=== PATIENT | female | born 1965 | race American Indian/Alaskan Native ===

== ENCOUNTER 2021-01-10 21:55 | Inpatient (IN) | payer MEDICAID ==
[2021-01-10] MEDS ORDERED: SODIUM CHLORIDE 0.9% 500 ML 500 ML IV ONE (22:45)
[2021-01-10] MEDS ORDERED: ONDANSETRON 4 MG/2 ML INJ IV ONE (22:45)
[2021-01-10] MEDS ORDERED: HYDROmorphone 1 MG/1 ML INJ IV ONE (22:45)
[2021-01-10] MEDS ORDERED: SODIUM CHLORIDE 0.9% 1000 ML 1,000 ML IV ONE (22:45)
--- NOTE | 2021-01-10 22:52 | Emergency Department Report ---
ED Abdominal Pain HPI - General Chief Complaint: Urogenital-Female Stated Complaint: LOWER BODY PAIN PUI?: No Time Seen by Provider: 01/10/21 22:25 Source: EMS Mode of arrival: Stretcher Limitations: No Limitations - History of Present Illness Initial Comments: Patient is a 55-year-old female that presents emergency room with complaints of lower abdominal pain. Patient states also having vaginal pain. Patient states that her abdominal pain started 2 days ago. Patient is a vaginal pain started 2 weeks ago. Patient states she has a history of cervical cancer that has been managed to the bone and brain. Patient states she is on home O2 for her cancer. Patient states she is not sure if he has mets to her lungs. Patient states that she is on 4 L of oxygen at home. Patient's current oxygen saturation is 91%. Patient states she is normally 98% with 4 L of oxygen at home. Patient states that her abdominal pain and vaginal pain is better with rest and worse with movement and palpation. Patient denies fever and chills. Patient denies dysuria. Patient denies diarrhea. Patient denies chest pain. Patient denies shortness of breath. Patient states she is feeling normal as far as her respiratory status. Patient also complains of lower back pain. Patient states her lower back pain is been going on for 3 weeks. Patient states her lower back pain is worsening. Patient dates her lower back pain is a 10 out of 10. Patient states her abdominal pain is 10 out of 10. Patient dates her vaginal pain is a 10 out of 10. Patient denies recent travel. Patient denies recent international travel. Patient denies exposure to the novel coronavirus. Patient denies sick contacts. Patient denies fever and chills. Patient denies cough. Patient denies diarrhea. Patient denies coming in contact with anybody with symptoms of the novel coronavirus. MD Complaint: abdominal pain -: Sudden - Related Data Home Medications Medication Instructions Recorded Confirmed Last Taken Butalb/Acetamin/Caff 50-325-40 1 tab PO Q8HR PRN 01/11/21 01/11/21 01/10/21 19:00 [Fioricet 50-325-40] LORazepam [Lorazepam] 1 tab PO PRN 01/11/21 01/11/21 01/10/21 19:00 dexAMETHasone [Dexamethasone] 2 mg PO BID 01/11/21 01/11/21 01/10/21 15:00 Previous Rx's Medication Instructions Recorded Last Taken Type Cyclobenzaprine [Flexeril 10mg] 10 mg PO BID PRN #20 tablet 08/09/14 01/10/21 19:00 Rx Ibuprofen [Motrin 800 MG tab] 800 mg PO BID PRN #30 tablet 08/09/14 Unknown Rx Allergies Allergy/AdvReac Type Severity Reaction Status Date / Time No Known Allergies Allergy Verified 08/09/14 15:15 ED Review of Systems ROS: Stated complaint: LOWER BODY PAIN Other details as noted in HPI Constitutional: denies: chills, fever Eyes: denies: eye pain, eye discharge, vision change ENT: denies: ear pain, throat pain Respiratory: denies: cough, shortness of breath, wheezing Cardiovascular: denies: chest pain, palpitations Endocrine: no symptoms reported Gastrointestinal: as per HPI, abdominal pain. denies: nausea, diarrhea Genitourinary: denies: urgency, dysuria, discharge Musculoskeletal: as per HPI, back pain. denies: joint swelling, arthralgia Skin: denies: rash, lesions Neurological: denies: headache, weakness, paresthesias Psychiatric: denies: anxiety, depression Hematological/Lymphatic: denies: easy bleeding, easy bruising ED Past Medical Hx - Past Medical History Previous Medical History?: Yes Hx Diabetes: Yes Hx of Cancer: Yes (bone ca brain ca and cervical ca) Additional medical history: home 02 - Surgical History Past Surgical History?: No - Family History Family history: no significant - Social History Smoking Status: Never Smoker Substance Use Type: None - Medications Home Medications: Home Medications Medication Instructions Recorded Confirmed Last Taken Type Cyclobenzaprine [Flexeril 10mg] 10 mg PO BID PRN #20 tablet 08/09/14 01/11/21 01/10/21 19:00 Rx Ibuprofen [Motrin 800 MG tab] 800 mg PO BID PRN #30 tablet 08/09/14 01/11/21 Unknown Rx Butalb/Acetamin/Caff 50-325-40 1 tab PO Q8HR PRN 01/11/21 01/11/21 01/10/21 19:00 History [Fioricet 50-325-40] LORazepam [Lorazepam] 1 tab PO PRN 01/11/21 01/11/21 01/10/21 19:00 History dexAMETHasone [Dexamethasone] 2 mg PO BID 01/11/21 01/11/21 01/10/21 15:00 History ED Physical Exam - General Limitations: No Limitations General appearance: alert, in no apparent distress - Head Head exam: Present: atraumatic, normocephalic - Eye Eye exam: Present: normal appearance - ENT ENT exam: Present: mucous membranes moist - Neck Neck exam: Present: normal inspection - Respiratory Respiratory exam: Present: normal lung sounds bilaterally. Absent: respiratory distress - Cardiovascular Cardiovascular Exam: Present: regular rate, normal rhythm. Absent: systolic murmur, diastolic murmur, rubs, gallop - GI/Abdominal GI/Abdominal exam: Present: soft, tenderness (Lower abdominal tenderness.), normal bowel sounds - Extremities Exam Extremities exam: Present: normal inspection - Back Exam Back exam: Present: normal inspection - Neurological Exam Neurological exam: Present: alert, oriented X3 - Psychiatric Psychiatric exam: Present: normal affect, normal mood - Skin Skin exam: Present: warm, dry, intact, normal color. Absent: rash ED Course Vital Signs 01/10/21 01/10/21 01/10/21 21:56 22:10 22:19 Temperature 97.8 F 97.8 F Pulse Rate 155 H 155 H 156 H Respiratory 22 18 32 H Rate Blood Pressure 104/63 104/63 Blood Pressure 104/63 [Left] O2 Sat by Pulse 93 91 89 Oximetry 01/10/21 01/10/21 01/10/21 22:21 22:23 22:25 Temperature Pulse Rate 158 H 160 H 155 H Respiratory 33 H 27 H 33 H Rate Blood Pressure 104/63 104/63 104/63 Blood Pressure [Left] O2 Sat by Pulse 91 90 91 Oximetry 01/10/21 01/10/21 01/10/21 22:27 22:29 22:31 Temperature Pulse Rate 154 H 152 H 148 H Respiratory 29 H 19 20 Rate Blood Pressure 109/63 109/63 109/63 Blood Pressure [Left] O2 Sat by Pulse 86 94 97 Oximetry 01/10/21 01/10/21 01/10/21 22:33 22:35 22:37 Temperature Pulse Rate 146 H 142 H 141 H Respiratory 28 H 29 H 31 H Rate Blood Pressure 109/63 109/63 109/63 Blood Pressure [Left] O2 Sat by Pulse 97 97 98 Oximetry 01/10/21 01/10/21 01/10/21 22:39 22:41 22:43 Temperature Pulse Rate 139 H 141 H 141 H Respiratory 27 H 29 H 21 Rate Blood Pressure 109/63 109/63 109/63 Blood Pressure [Left] O2 Sat by Pulse 98 96 98 Oximetry 01/10/21 01/10/21 01/10/21 22:45 22:47 22:49 Temperature Pulse Rate 139 H 139 H 135 H Respiratory 20 18 30 H Rate Blood Pressure 109/63 109/63 109/63 Blood Pressure [Left] O2 Sat by Pulse 97 99 99 Oximetry 01/10/21 01/10/21 01/10/21 22:51 22:53 22:55 Temperature Pulse Rate 137 H 140 H 142 H Respiratory 30 H 23 24 Rate Blood Pressure 109/63 109/63 109/63 Blood Pressure [Left] O2 Sat by Pulse 99 97 98 Oximetry 01/10/21 01/10/21 01/10/21 22:57 22:59 23:01 Temperature Pulse Rate 140 H 140 H 142 H Respiratory 21 17 16 Rate Blood Pressure 118/67 118/67 118/67 Blood Pressure [Left] O2 Sat by Pulse 96 96 96 Oximetry 01/10/21 01/10/21 01/10/21 23:03 23:05 23:07 Temperature Pulse Rate 142 H 139 H 140 H Respiratory 18 14 21 Rate Blood Pressure 118/67 118/67 118/67 Blood Pressure [Left] O2 Sat by Pulse 96 95 94 Oximetry 01/10/21 01/10/21 01/10/21 23:09 23:11 23:13 Temperature Pulse Rate 142 H 138 H 138 H Respiratory 15 10 L 18 Rate Blood Pressure 118/67 118/67 118/67 Blood Pressure [Left] O2 Sat by Pulse 94 94 94 Oximetry 01/10/21 01/10/21 01/10/21 23:15 23:17 23:19 Temperature Pulse Rate 137 H 134 H 133 H Respiratory 8 L 20 58 H Rate Blood Pressure 118/67 118/67 118/67 Blood Pressure [Left] O2 Sat by Pulse 94 94 96 Oximetry 01/10/21 01/10/21 01/10/21 23:21 23:23 23:25 Temperature Pulse Rate 128 H 124 H 129 H Respiratory 17 21 16 Rate Blood Pressure 118/67 118/67 118/67 Blood Pressure [Left] O2 Sat by Pulse 97 95 95 Oximetry 01/10/21 01/10/21 01/10/21 23:27 23:29 23:31 Temperature Pulse Rate 126 H 121 H 123 H Respiratory 26 H 21 21 Rate Blood Pressure 117/77 117/77 117/77 Blood Pressure [Left] O2 Sat by Pulse 96 95 95 Oximetry 01/10/21 01/10/21 01/10/21 23:33 23:35 23:37 Temperature Pulse Rate 127 H 122 H 125 H Respiratory 17 20 19 Rate Blood Pressure 117/77 117/77 117/77 Blood Pressure [Left] O2 Sat by Pulse 94 95 95 Oximetry 01/10/21 01/10/21 01/10/21 23:39 23:41 23:43 Temperature Pulse Rate 122 H 126 H 132 H Respiratory 20 20 18 Rate Blood Pressure 117/77 117/77 117/77 Blood Pressure [Left] O2 Sat by Pulse 95 95 95 Oximetry 01/10/21 01/10/21 01/10/21 23:45 23:47 23:49 Temperature Pulse Rate 120 H 120 H 124 H Respiratory 19 19 20 Rate Blood Pressure 117/77 117/77 117/77 Blood Pressure [Left] O2 Sat by Pulse 96 95 95 Oximetry 01/10/21 01/10/21 01/10/21 23:51 23:53 23:55 Temperature Pulse Rate 124 H 118 H 117 H Respiratory 16 19 20 Rate Blood Pressure 117/77 117/77 117/77 Blood Pressure [Left] O2 Sat by Pulse 96 96 97 Oximetry 01/10/21 01/11/21 01/11/21 23:57 01:21 01:23 Temperature Pulse Rate 116 H 120 H 117 H Respiratory 21 23 15 Rate Blood Pressure 116/75 132/82 132/82 Blood Pressure [Left] O2 Sat by Pulse 96 95 95 Oximetry 01/11/21 01/11/21 01/11/21 01:25 01:27 01:29 Temperature Pulse Rate 118 H 113 H 115 H Respiratory 27 H 21 25 H Rate Blood Pressure 132/82 132/82 132/82 Blood Pressure [Left] O2 Sat by Pulse 93 93 94 Oximetry 01/11/21 01/11/21 01/11/21 01:31 01:33 01:35 Temperature Pulse Rate 111 H 110 H 112 H Respiratory 19 20 20 Rate Blood Pressure 132/82 132/82 132/82 Blood Pressure [Left] O2 Sat by Pulse 94 94 94 Oximetry 01/11/21 01/11/21 01/11/21 01:37 01:38 01:40 Temperature Pulse Rate 109 H 112 H 110 H Respiratory 19 20 19 Rate Blood Pressure 132/82 132/82 132/82 Blood Pressure [Left] O2 Sat by Pulse 94 94 94 Oximetry 01/11/21 01/11/21 01/11/21 02:13 02:15 02:17 Temperature Pulse Rate 113 H 102 H 103 H Respiratory 23 19 19 Rate Blood Pressure 140/92 140/92 Blood Pressure [Left] O2 Sat by Pulse 92 94 93 Oximetry 01/11/21 01/11/21 01/11/21 02:19 02:21 02:23 Temperature Pulse Rate 100 H 100 H 98 H Respiratory 19 18 20 Rate Blood Pressure 140/92 140/92 140/92 Blood Pressure [Left] O2 Sat by Pulse 94 95 95 Oximetry 01/11/21 01/11/21 01/11/21 02:25 02:27 02:29 Temperature Pulse Rate 96 H 101 H 98 H Respiratory 19 20 19 Rate Blood Pressure 140/92 113/73 113/73 Blood Pressure [Left] O2 Sat by Pulse 95 95 Oximetry 01/11/21 01/11/21 01/11/21 02:31 02:33 02:35 Temperature Pulse Rate 96 H 91 H 92 H Respiratory 18 20 17 Rate Blood Pressure 113/73 113/73 113/73 Blood Pressure [Left] O2 Sat by Pulse 96 97 97 Oximetry 01/11/21 01/11/21 01/11/21 02:37 02:39 02:41 Temperature Pulse Rate 94 H 95 H 93 H Respiratory 18 18 18 Rate Blood Pressure 113/73 113/73 113/73 Blood Pressure [Left] O2 Sat by Pulse 97 97 97 Oximetry 01/11/21 01/11/21 01/11/21 02:43 02:45 02:47 Temperature Pulse Rate 93 H 94 H 95 H Respiratory 18 19 19 Rate Blood Pressure 113/73 113/73 113/73 Blood Pressure [Left] O2 Sat by Pulse 97 97 97 Oximetry 01/11/21 01/11/21 01/11/21 02:49 02:51 02:53 Temperature Pulse Rate 94 H 118 H 110 H Respiratory 18 19 22 Rate Blood Pressure 113/73 113/73 113/73 Blood Pressure [Left] O2 Sat by Pulse 97 97 95 Oximetry 01/11/21 01/11/21 01/11/21 02:55 02:57 02:59 Temperature Pulse Rate 115 H 113 H 118 H Respiratory 18 20 18 Rate Blood Pressure 113/73 145/73 145/73 Blood Pressure [Left] O2 Sat by Pulse 95 91 95 Oximetry 01/11/21 01/11/21 01/11/21 03:01 03:03 03:05 Temperature Pulse Rate 105 H 99 H 99 H Respiratory 24 23 23 Rate Blood Pressure 145/73 145/73 145/73 Blood Pressure [Left] O2 Sat by Pulse 97 96 96 Oximetry 01/11/21 01/11/21 01/11/21 03:07 03:09 03:11 Temperature Pulse Rate 98 H 98 H 94 H Respiratory 21 21 21 Rate Blood Pressure 145/73 145/73 145/73 Blood Pressure [Left] O2 Sat by Pulse 97 97 98 Oximetry 01/11/21 01/11/21 01/11/21 03:13 03:15 03:17 Temperature Pulse Rate 94 H 104 H 106 H Respiratory 20 21 21 Rate Blood Pressure 145/73 145/73 145/73 Blood Pressure [Left] O2 Sat by Pulse 98 98 98 Oximetry 01/11/21 01/11/21 01/11/21 03:19 03:21 03:23 Temperature Pulse Rate 94 H 96 H 102 H Respiratory 19 20 19 Rate Blood Pressure 145/73 145/73 145/73 Blood Pressure [Left] O2 Sat by Pulse 99 99 99 Oximetry 01/11/21 01/11/21 01/11/21 03:25 03:27 03:29 Temperature Pulse Rate 95 H 96 H 93 H Respiratory 20 17 18 Rate Blood Pressure 145/73 107/58 107/58 Blood Pressure [Left] O2 Sat by Pulse 99 99 98 Oximetry 01/11/21 01/11/21 01/11/21 03:31 04:01 04:31 Temperature Pulse Rate 95 H 94 H 93 H Respiratory 18 19 19 Rate Blood Pressure 107/58 114/63 113/63 Blood Pressure [Left] O2 Sat by Pulse 99 100 99 Oximetry 01/11/21 01/11/21 05:25 05:26 Temperature Pulse Rate 111 H Respiratory 20 20 Rate Blood Pressure Blood Pressure [Left] O2 Sat by Pulse Oximetry - Reevaluation(s) Reevaluation #1: Patient is still tachycardic. Patient will be given IV fluids. Patient is on 6 L of oxygen. 01/10/21 22:30 Reevaluation #2: Patient states her pain is better. 01/11/21 00:11 Reevaluation #3: I discussed all results with patient. I discussed plan of care with patient. Patient agrees with plan of care and admission. Patient to be admitted to the hospitalist service. 01/11/21 03:11 - Consultations Consultation #1: Hospitalist consulted for admission. Hospitalist to admit patient. 01/11/21 03:11 Consultation #2: General surgery consulted. 01/11/21 03:11 ED Medical Decision Making - Lab Data Result diagrams: 01/11/21 12:45 01/11/21 12:45 - EKG Data -: EKG Interpreted by Me EKG shows normal: sinus rhythm, axis, intervals, QRS complexes, ST-T waves Rate: tachycardia - Radiology Data Radiology results: report reviewed, image reviewed interpreted by me: Chest x-ray: Positive pneumonia, no pneumothorax, no foreign body, no osseous findings, CHEST 1 VIEW INDICATION / CLINICAL INFORMATION: tachycardia. COMPARISON: None available. FINDINGS: SUPPORT DEVICES: None. HEART / MEDIASTINUM: No significant abnormality. LUNGS / PLEURA: There is marked diffuse interstitial pulmonary opacities throughout both lungs. There is more focal area of consolidation in the right mid and lower lung. Small right pleural effusion is present. No pneumothorax. ADDITIONAL FINDINGS: No significant additional findings. IMPRESSION: 1. Abnormal chest radiograph with diffuse bilateral interstitial pulmonary opacities, with right basilar consolidation and right pleural effusion. CTA CHEST WITH IV CONTRAST INDICATION / CLINICAL INFORMATION: Tachycardia, hypoxia. Patient has cervical cancer TECHNIQUE: Axial CT images were obtained through the chest after injection of 100 cc IV contrast. 3 plane MIP and/or 3D reconstructions were produced. All CT scans at this location are performed using CT dose reduction for ALARA by means of automated exposure control. COMPARISON: Chest radiograph 01/10/2021 FINDINGS: PULMONARY ARTERIES: No pulmonary emboli. THORACIC AORTA: No significant abnormality. HEART: No significant abnormality. CORONARY ARTERIES: No significant calcification. PLEURA: Small right pleural effusion. No pneumothorax. LYMPH NODES: There are several mild to moderately enlarged lymph nodes scatte red throughout the mediastinum and both pulmonary karla most likely metastatic adenopathy in this pa tient with known cervical carcinoma. LUNGS: There are numerous pulmonary nodules throughout both lungs of various sizes consistent with pulmonary metastases. 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 There is near complete consolidation of the right lower lobe and focal consolidation in the left lung base worrisome for bilateral pneumonia. ADDITIONAL FINDINGS: None. UPPER ABDOMEN: Please see separately dictated CT abdomen/pelvis report SKELETAL STRUCTURES: Mild spondylitic change noted throughout the spine. IMPRESSION: 1. No CT evidence for pulmonary embolism. 2. The lungs are grossly abnormal with findings suggesting pulmonary metastases, as well as a diffuse bilateral reticular nodular interstitial disease, worrisome for lymphangitic carcinomatosis. 3. There is complete consolidation of the right lower lobe with air bronchograms suggesting pneumonia. There is also lesser degree of airspace disease in the left lung base also worrisome for pneumonia. 4. Multiple enlarged lymph nodes are present in the mediastinum and both pulmonary karla most likely metastatic adenopathy. . CT abdomen pelvis w con, INDICATION / CLINICAL INFORMATION: Patient complains of abdominal pain. Patient has cervical carcinoma TECHNIQUE: Axial CT imaging of abdomen and pelvis was obtained with IV contrast. Coronal and sagittal reformatted imaging obtained and reviewed. All CT scans at this location are performed using CT dose reduction for ALARA by means of automated exposure control. COMPARISON: None available. FINDINGS: CT abdomen with contrast shows enlarged liver. Several ill defined masses of various sizes are seen throughout the liver parenchyma consistent with hepatic metastases. The largest measurable mass is in the medial segment of the left lobe measuring 4 cm. Spleen is of normal size. Pancreas and adrenal glands are grossly unremarkable. There are a few simple cysts within both kidneys. Additionally there is a complex round mass in the upper pole the left kidney measuring 4.5 cm. The gallbladder is abnormal. The gallbladder contains several gallstones. The gallbladder is markedly distended with a suggestion of gallbladder wall thickening. There is no biliary dilatation. Small amount of free fluid is seen throughout the abdomen. There are multiple enlarged lymph nodes scattered throughout the retroperitoneum. CT pelvis demonstrates enlarged heterogeneous appearing uterus. GI tract is grossly unremarkable. No evidence for bowel obstruction. There is omental nodularity noted. No evidence for osseous metastases. IMPRESSION: 1. This is a grossly abnormal CT scan. 2. Abnormal appearance of the gallbladder. Gallbladder is prominently distended and contains gallstones as well as gallbladder wall thickening. Findings are concerning for the presence of acute cholecystitis and clinical correlation is recommended. 3. Numerous hepatic metastases as well as extensive retroperitoneal metastatic adenopathy. 4. Findings suggestive of peritoneal carcinomatosis with small amount of ascites noted and omental nodularity/thickening. 5. Complex enhancing solid mass within the upper pole of the left kidney. This could represent a renal metastasis or a primary renal neoplasm. 6. Enlarged heterogeneous uterus. - Medical Decision Making Patient is a 55-year-old female that presents emergency room with vaginal pain, lower abdominal pain. Patient found to be tachycardic and hypoxic. Patient states she has hypoxia since she was diagnosed with cervical cancer. Patient states she does not have mets to her lungs. Patient states she has mets to the bone and brain. Patient had an EKG done which shows sinus tachycardia. Patient given Dilaudid for pain. Patient given fluids for tachycardia. Patient had a abdominal CT and a CTA of the chest to rule out a PE. Patient's abdominal CT shows acute cholecystitis and multiple masses. Patient CTA of the chest shows multiple metastatic lesions of the lungs but no PE. The CTA does show pneumonia. Patient admitted to the hospital service for further evaluation treatment. General surgery consulted. Critical care time documented due to the multiple reassessments, prolonged time at the bedside, interpretation of diagnostics and labs. - Differential Diagnosis PE, pneumonia, sepsis, abdominal pain, tachycardia, dehydration Critical Care Time: Yes Critical care time in (mins) excluding proc time.: 35 Critical care attestation.: If time is entered above; I have spent that time in minutes in the direct care of this critically ill patient, excluding procedure time. Critical Care Time: 35 minutes ED Disposition Clinical Impression: Acute cholecystitis, Tachycardia Sepsis Qualifiers: Sepsis type: sepsis due to unspecified organism Sepsis acute organ dysfunction status: unspecified Qualified Code(s): A41.9 - Sepsis, unspecified organism Pneumonia Qualifiers: Pneumonia type: due to unspecified organism Laterality: unspecified laterality Lung location: unspecified part of lung Qualified Code(s): J18.9 - Pneumonia, unspecified organism Cervical cancer Qualifiers: Malignant neoplasm of cervix location: unspecified location Qualified Code(s): C53.9 - Malignant neoplasm of cervix uteri, unspecified Respiratory failure Qualifiers: Chronicity: acute Respiratory failure complication: hypoxia Qualified Code(s): J96.01 - Acute respiratory failure with hypoxia Disposition: -09 OP ADMIT IP TO THIS HOSP Is pt being admited?: Yes Does the pt Need Aspirin: No Condition: Critical Time of Disposition: 03:12
--- NOTE | 2021-01-10 23:19 | XRay Report ---
CHEST 1 VIEW INDICATION / CLINICAL INFORMATION: tachycardia. COMPARISON: None available. FINDINGS: SUPPORT DEVICES: None. HEART / MEDIASTINUM: No significant abnormality. LUNGS / PLEURA: There is marked diffuse interstitial pulmonary opacities throughout both lungs. There is more focal area of consolidation in the right mid and lower lung. Small right pleural effusion is present. No pneumothorax. ADDITIONAL FINDINGS: No significant additional findings. IMPRESSION: 1. Abnormal chest radiograph with diffuse bilateral interstitial pulmonary opacities, with right basi lar consolidation and right pleural effusion. Signer Name: Jazmyn Chiu MD Signed: 01/10/2021 11:15 PM Workstation Name: [id number]
[2021-01-10 23:22] LABS: Hematocrit 27.7 % (30.3-42.9); Mean Corpuscular HGB Conc 33 % (30-34); Platelet Count 322 K/mm3 (140-440); Red Blood Count 4.03 M/mm3 (3.65-5.03)
[2021-01-10 23:23] LABS: Mean Corpuscular Volume 69 fl (79-97); Red Cell Distribution Width 23.7 % (13.2-15.2)
[2021-01-11] MEDS ORDERED: HYDROmorphone 1 MG/1 ML INJ IV ONE (00:01)
[2021-01-11 00:11] LABS: Alanine Aminotransferase 19 units/L (7-56); Albumin 2.3 g/dL (3.9-5); Blood Urea Nitrogen 10 mg/dL (7-17); Calcium 8.2 mg/dL (8.4-10.2); Hemolysis Index 0
[2021-01-11 00:16] LABS: BUN/Creatinine Ratio 25; Bilirubin,Direct < 0.2 mg/dL (0-0.2)
[2021-01-11] MEDS ORDERED: SODIUM CHLORIDE 0.9% 1000 ML 1,000 ML IV ONE (00:19)
[2021-01-11] MEDS ORDERED: CEFEPIME/NS 2 GM/100 ML 2 GM/100 ML BAG IV ONE (00:19)
[2021-01-11 01:15] LABS: Total Cells Counted 100
[2021-01-11 01:16] LABS: Anisocytosis 1+; Hypochromasia 1+
--- NOTE | 2021-01-11 02:49 | Cat Scan Report ---
CTA CHEST WITH IV CONTRAST INDICATION / CLINICAL INFORMATION: Tachycardia, hypoxia. Patient has cervical cancer TECHNIQUE: Axial CT images were obtained through the chest after injection of 100 cc IV contrast. 3 plane MIP an d/or 3D reconstructions were produced. All CT scans at this location are performed using CT dose redu ction for ALARA by means of automated exposure control. COMPARISON: Chest radiograph 01/10/2021 FINDINGS: PULMONARY ARTERIES: No pulmonary emboli. THORACIC AORTA: No significant abnormality. HEART: No significant abnormality. CORONARY ARTERIES: No significant calcification. PLEURA: Small right pleural effusion. No pneumothorax. LYMPH NODES: There are several mild to moderately enlarged lymph nodes scattered throughout the media stinum and both pulmonary karla most likely metastatic adenopathy in this patient with known cervical carcinoma. LUNGS: There are numerous pulmonary nodules throughout both lungs of various sizes consistent with pu lmonary metastases. 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 There is near complete consolidation of the right lower lobe and focal consolidation in the left lung base worrisome for prince ateral pneumonia. ADDITIONAL FINDINGS: None. UPPER ABDOMEN: Please see separately dictated CT abdomen/pelvis report SKELETAL STRUCTURES: Mild spondylitic change noted throughout the spine. IMPRESSION: 1. No CT evidence for pulmonary embolism. 2. The lungs are grossly abnormal with findings suggesting pulmonary metastases, as well as a diffuse bilateral reticular nodular interstitial disease, worrisome for lymphangitic carcinomatosis. 3. There is complete consolidation of the right lower lobe with air bronchograms suggesting pneumonia . There is also lesser degree of airspace disease in the left lung base also worrisome for pneumonia. 4. Multiple enlarged lymph nodes are present in the mediastinum and both pulmonary karla most likely m etastatic adenopathy. . CT abdomen pelvis w con, INDICATION / CLINICAL INFORMATION: Patient complains of abdominal pain. Patient has cervical carcinoma TECHNIQUE: Axial CT imaging of abdomen and pelvis was obtained with IV contrast. Coronal and sagittal reformatte d imaging obtained and reviewed. All CT scans at this location are performed using CT dose reduction for ALARA by means of automated exposure control. COMPARISON: None available. FINDINGS: CT abdomen with contrast shows enlarged liver. Several ill defined masses of various sizes are seen t hroughout the liver parenchyma consistent with hepatic metastases. The largest measurable mass is in the medial segment of the left lobe measuring 4 cm. Spleen is of normal size. Pancreas and adrenal gl ands are grossly unremarkable. There are a few simple cysts within both kidneys. Additionally there i s a complex round mass in the upper pole the left kidney measuring 4.5 cm. The gallbladder is abnormal. The gallbladder contains several gallstones. The gallbladder is markedly distended with a suggestion of gallbladder wall thickening. There is no biliary dilatation. Small amount of free fluid is seen throughout the abdomen. There are multiple enlarged lymph nodes sc attered throughout the retroperitoneum. CT pelvis demonstrates enlarged heterogeneous appearing uterus. GI tract is grossly unremarkable. No evidence for bowel obstruction. There is omental nodularity noted. No evidence for osseous metastases. IMPRESSION: 1. This is a grossly abnormal CT scan. 2. Abnormal appearance of the gallbladder. Gallbladder is prominently distended and contains gallston es as well as gallbladder wall thickening. Findings are concerning for the presence of acute cholecys titis and clinical correlation is recommended. 3. Numerous hepatic metastases as well as extensive retroperitoneal metastatic adenopathy. 4. Findings suggestive of peritoneal carcinomatosis with small amount of ascites noted and omental no dularity/thickening. 5. Complex enhancing solid mass within the upper pole of the left kidney. This could represent a aneta l metastasis or a primary renal neoplasm. 6. Enlarged heterogeneous uterus. Signer Name: Jazmyn Chiu MD Signed: 01/11/2021 2:44 AM Workstation Name: [id number]
[2021-01-11] MEDS ORDERED: MAGNESIUM HYDROXIDE (MOM) ORAL LIQD UDC PO PRN (03:39)
[2021-01-11] MEDS ORDERED: ONDANSETRON 4 MG/2 ML INJ IV PRN (03:39)
[2021-01-11] MEDS ORDERED: DEXTROSE 50% IN WATER (25GM) 50 ML SYRINGE IV PRN (03:39)
--- NOTE | 2021-01-11 04:06 | History and Physical Report ---
History of Present Illness Date of examination: 01/11/21 Date of admission: 01/11/21 03:08 Chief complaint: Abdominal Pain History of present illness: 55-year-old -F[place] female with known history of cervical cancer with metastases presents to the emergency room today complaining of lower abdominal pain and vaginal pain which has been ongoing for about 2 to 3 weeks. Patient denies any shortness of breath. She is normally on home oxygen 4 L by nasal ca nnula. She is unsure whether she has had metastasis to the lungs. Symptoms are said to be worse on exertion and gets better upon resting. She denies any hematuria or dysuria and denies any vaginal discharge. She denies any night sweats, no fever or chills and denies any chest pain , no headaches or dizziness. Pain level is about 10/10 in severity. Oxygen saturation was about 91% on the 4 L of oxygen. Saturation improved to about 96% on 6 L of oxygen. Work-up in the emergency room today reveals diffuse bilateral interstitial pulmonary opacities with right basilar consolidation and right pleural effusion on chest x-ray. 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 There is complete consolidation of the right lower lobe with air bronchogram suggesting pneumonia. There is also a lesser degree of airspace disease in the left lung. CT of the abdomen and pelvis was suggestive or concerning for acute ch olecystitis, peritoneal carcinomatosis, complaints enhancing solid mass within the upper pole of the left kidney and this could represent a renal metastasis. Enlarged heterogeneous uterus. Patient is being admitted with pneumonia, cholecystitis, hypoxia and metastatic cervical cancer. Past History Past Medical History: diabetes, other (Cervical cancer with bone and brain metastasis) Past Surgical History: No surgical history Social history: no significant social history Medications and Allergies Allergies Allergy/AdvReac Type Severity Reaction Status Date / Time No Known Allergies Allergy Verified 08/09/14 15:15 Home Medications Medication Instructions Recorded Confirmed Last Taken Type Cyclobenzaprine [Flexeril 10mg] 10 mg PO BID PRN #20 tablet 08/09/14 Unknown Rx Ibuprofen [Motrin 800 MG tab] 800 mg PO BID PRN #30 tablet 08/09/14 Unknown Rx Active Meds: Active Medications Dextrose (Dextrose 50% In Water (25gm) 50 Ml Syringe) 50 ml IV Q30MIN PRN; Protocol PRN Reason: Hypoglycemia Sodium Chloride (Nacl 0.9% 1000 Ml) 1,000 mls @ 75 mls/hr IV DIRECT MIRTA Levofloxacin/Dextrose (Levaquin 750mg/150ml) 750 mg in 150 mls @ 100 mls/hr IV Q24H MIRTA; Protocol Insulin Human Lispro (Insulin Lispro 100 Unit/Ml) 0 unit SUB-Q ACHS MIRTA; Protocol Magnesium Hydroxide (Magnesium Hydroxide (Mom) Oral Liqd Udc) 30 ml PO Q4H PRN PRN Reason: Constipation Morphine Sulfate (Morphine 2 Mg/1 Ml Inj) 2 mg IV Q4H PRN PRN Reason: Pain, Moderate (4-6) Ondansetron HCl (Ondansetron 4 Mg/2 Ml Inj) 4 mg IV Q8H PRN PRN Reason: Nausea And Vomiting Sodium Chloride (Sodium Chloride 0.9% 10 Ml Flush Syringe) 10 ml IV BID MIRTA Sodium Chloride (Sodium Chloride 0.9% 10 Ml Flush Syringe) 10 ml IV PRN PRN PRN Reason: LINE FLUSH Review of Systems Constitutional: fatigue, weakness, no fever, no chills, no night sweats Ears, nose, mouth and throat: no nasal congestion, no sore throat Cardiovascular: no chest pain, no palpitations Respiratory: shortness of breath, no cough Gastrointestinal: abdominal pain, no nausea, no vomiting, no diarrhea, no constipation Genitourinary Female: pelvic pain, other (Vaginal Pain), no flank pain, no dysuria, no urgency, no hematuria Musculoskeletal: no neck pain, no low back pain Integumentary: no rash, no pruritis Neurological: no headaches, no confusion Psychiatric: no anxiety, no depression Endocrine: no polyphagia, no polydipsia, no polyuria, no nocturia Exam - Constitutional Vitals: Temp Pulse Resp BP Pulse Ox 97.8 F 93 H 18 107/58 98 01/10/21 22:10 01/11/21 03:29 01/11/21 03:29 01/11/21 03:29 01/11/21 03:29 General appearance: Present: mild distress, well-nourished, other (Appears lethargic) - EENT Eyes: Present: PERRL, EOM intact. Absent: scleral icterus ENT: hearing intact, clear oral mucosa, dentition normal - Neck Neck: Present: supple, normal ROM - Respiratory Respiratory effort: normal Respiratory: bilateral: diminished - Cardiovascular Rhythm: regular Heart Sounds: Present: S1 & S2. Absent: gallop, systolic murmur, diastolic murmur, rub, click - Extremities Extremities: no ischemia, pulses intact, pulses symmetrical, No edema, normal temperature, Full ROM Peripheral Pulses: within normal limits - Abdominal General gastrointestinal: Present: soft, non-distended, normal bowel sounds. Absent: tender (Mild epigastric tenderness, no rebound tenderness and no guarding), mass - Integumentary Integumentary: Present: clear, warm, dry, normal turgor. Absent: rash - Musculoskeletal Musculoskeletal: strength equal bilaterally - Psychiatric Psychiatric: appropriate mood/affect, intact judgment & insight, memory intact, cooperative - Neurologic Neurologic: CNII-XII intact, no focal deficits, moves all extremities Results - Labs CBC & Chem 7: 01/10/21 22:58 01/10/21 22:58 Labs: Abnormal lab results 01/10/21 01/10/21 Range/Units 22:58 22:58 WBC 37.7 H (4.5-11.0) K/mm3 Hgb 9.0 L (10.1-14.3) gm/dl Hct 27.7 L (30.3-42.9) % MCV 69 L (79-97) fl MCH 22 L (28-32) pg RDW 23.7 H (13.2-15.2) % Seg Neuts % (Manual) 91.0 H (40.0-70.0) % Lymphocytes % (Manual) 2.0 L (13.4-35.0) % Seg Neutrophils # Man 34.3 H (1.8-7.7) K/mm3 Lymphocytes # (Manual) 0.8 L (1.2-5.4) K/mm3 Monocytes # (Manual) 2.6 H (0.0-0.8) K/mm3 Creatinine 0.4 L (0.6-1.2) mg/dL Glucose 148 H (65-100) mg/dL Calcium 8.2 L (8.4-10.2) mg/dL Alkaline Phosphatase 312 H (35-129) units/L Total Protein 6.0 L (6.3-8.2) g/dL Albumin 2.3 L (3.9-5) g/dL Assessment and Plan - Patient Problems (1) Acute cholecystitis Current Visit: Yes Status: Acute Plan to address problem: Patient has been kept n.p.o. Consult placed to general surgery for evaluation. Patient also placed on analgesic medication. (2) Cervical cancer Current Visit: Yes Status: Acute Qualifiers: Malignant neoplasm of cervix location: unspecified location Qualified Code(s): C53.9 - Malignant neoplasm of cervix uteri, unspecified Plan to address problem: Patient has had multiple metastatic sites. She will need follow-up with oncology and possibly hospice care. (3) Pneumonia Current Visit: Yes Status: Acute Qualifiers: Pneumonia type: due to unspecified organism Laterality: unspecified laterality Lung location: unspecified part of lung Qualified Code(s): J18.9 - Pneumonia, unspecified organism Plan to address problem: She has been placed on empiric IV antibiotics. We will await culture results. (4) Respiratory failure Current Visit: Yes Status: Acute Qualifiers: Chronicity: acute Respiratory failure complication: hypoxia Qualified Code(s): J96.01 - Acute respiratory failure with hypoxia Plan to address problem: Possibly secondary to the pneumonia and or metastatic lung disease. We will keep oxygen saturation greater equal to 94%. (5) Sepsis Current Visit: Yes Status: Acute Qualifiers: Sepsis type: sepsis due to unspecified organism Sepsis acute organ dysfunction status: unspecified Qualified Code(s): A41.9 - Sepsis, unspecified organism Plan to address problem: Possibly secondary to the pneumonia and cholecystitis. We will continue on IV fluid and empiric IV antibiotics. (6) DVT prophylaxis Current Visit: Yes Status: Acute Plan to address problem: Patient placed on sequential compression device. We will hold anticoagulation in view of possible surgical intervention for her cholecystitis. (7) Full code status Current Visit: Yes Status: Acute Plan to address problem: Patient is full code. Patient will probably benefit from hospice evaluation.
[2021-01-11] MEDS ORDERED: PIPERACILLIN/TAZOBACTAM 3.375 3.375 GM/50 ML BAG IV SCH (05:00)
[2021-01-11] MEDS: MORPHINE 2 MG/1 ML INJ IV PRN ×2 (05:26→10:11)
[2021-01-11] MEDS: PIPERACIL/TAZOBACTA 4.5/NS 100 4.5 GM/100 ML VIAL IV SCH ×3 (05:27→20:24)
[2021-01-11] MEDS: SODIUM CHLORIDE 0.9% 1000 ML 1,000 ML IV SCH (06:15)
[2021-01-11] MEDS: INSULIN LISPRO 100 UNIT/ML SUB-Q SCH ×4 (08:00→22:49)
[2021-01-11 10:49] LABS: Bilirubin,Urine NEG (Negative); Blood,Urine NEG (Negative); Color,Urine Yellow (Yellow); Protein,Urine <15 mg/dL mg/dL (Negative); Urobilinogen,Urine < 2.0 mg/dL (<2.0)
--- NOTE | 2021-01-11 10:56 | Progress Note ---
Assessment and Plan Assessment and plan: Acute cholecystitis Metastatic cervical cancer Pneumonia Acute hypoxic respiratory failure Sepsis 01/11/2021. Await surgery evaluation. 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 There is complete consolidation of the right lower lobe with air bronchogram suggesting pneumonia. There is also a lesser degree of airspace disease in the left lung. CT of the abdomen and pelvis was suggestive or concerning for acute cholecystitis, peritoneal carcinomatosis, complaints enhancing solid mass within the upper pole of the left kidney and this could represent a renal metastasis. Oncology consultation History Interval history: No new issues overnight. Hospitalist Physical - Constitutional Vitals: Temp Pulse Resp BP Pulse Ox 97.7 F 105 H 23 93/56 98 01/11/21 08:00 01/11/21 10:01 01/11/21 10:01 01/11/21 10:01 01/11/21 10:01 General appearance: Present: mild distress, well-nourished, other (Appears lethargic) - EENT Eyes: Present: PERRL, EOM intact ENT: hearing intact, clear oral mucosa, dentition normal - Neck Neck: Present: supple, normal ROM - Respiratory Respiratory effort: normal Respiratory: bilateral: CTA - Cardiovascular Rhythm: regular Heart Sounds: Present: S1 & S2. Absent: gallop, rub - Extremities Extremities: no ischemia, No edema, Full ROM - Abdominal General gastrointestinal: soft, non-tender, non-distended, normal bowel sounds - Integumentary Integumentary: Present: clear, warm, dry - Neurologic Neurologic: CNII-XII intact, moves all extremities Results - Labs CBC & Chem 7: 01/10/21 22:58 01/10/21 22:58 Labs: Laboratory Last Values WBC 37.7 K/mm3 (4.5-11.0) H 01/10/21 22:58 RBC 4.03 M/mm3 (3.65-5.03) 01/10/21 22:58 Hgb 9.0 gm/dl (10.1-14.3) L 01/10/21 22:58 Hct 27.7 % (30.3-42.9) L 01/10/21 22:58 MCV 69 fl (79-97) L 01/10/21 22:58 MCH 22 pg (28-32) L 01/10/21 22:58 MCHC 33 % (30-34) 01/10/21 22:58 RDW 23.7 % (13.2-15.2) H 01/10/21 22:58 Plt Count 322 K/mm3 (140-440) 01/10/21 22:58 Add Manual Diff Complete 01/10/21 22:58 Total Counted 100 01/10/21 22:58 Seg Neutrophils % [employer] 01/10/21 22:58 Seg Neuts % (Manual) 91.0 % (40.0-70.0) H 01/10/21 22:58 Lymphocytes % (Manual) 2.0 % (13.4-35.0) L 01/10/21 22:58 Monocytes % (Manual) 7.0 % (0.0-7.3) 01/10/21 22:58 Nucleated RBC % Not Reportable 01/10/21 22:58 Seg Neutrophils # Man 34.3 K/mm3 (1.8-7.7) H 01/10/21 22:58 Band Neutrophils # 0.0 K/mm3 01/10/21 22:58 Lymphocytes # (Manual) 0.8 K/mm3 (1.2-5.4) L 01/10/21 22:58 Abs React Lymphs (Man) 0.0 K/mm3 01/10/21 22:58 Monocytes # (Manual) 2.6 K/mm3 (0.0-0.8) H 01/10/21 22:58 Eosinophils # (Manual) 0.0 K/mm3 (0.0-0.4) 01/10/21 22:58 Basophils # (Manual) 0.0 K/mm3 (0.0-0.1) 01/10/21 22:58 Metamyelocytes # 0.0 K/mm3 01/10/21 22:58 Myelocytes # 0.0 K/mm3 01/10/21 22:58 Promyelocytes # 0.0 K/mm3 01/10/21 22:58 Blast Cells # 0.0 K/mm3 01/10/21 22:58 Hypersegmented Neuts Not Reportable 01/10/21 22:58 Hyposegmented Neuts Not Reportable 01/10/21 22:58 Hypogranular Neuts Not Reportable 01/10/21 22:58 Smudge Cells Not Reportable 01/10/21 22:58 Toxic Granulation Not Reportable 01/10/21 22:58 Toxic Vacuolation Not Reportable 01/10/21 22:58 Dohle Bodies Not Reportable 01/10/21 22:58 Pelger-Huet Anomaly Not Reportable 01/10/21 22:58 Dat Rods Not Reportable 01/10/21 22:58 Platelet Estimate Not Reportable 01/10/21 22:58 Clumped Platelets Not Reportable 01/10/21 22:58 Plt Clumps, EDTA Not Reportable 01/10/21 22:58 Large Platelets Not Reportable 01/10/21 22:58 Giant Platelets Not Reportable 01/10/21 22:58 Platelet Satelliting Not Reportable 01/10/21 22:58 Plt Morphology Comment Not Reportable 01/10/21 22:58 RBC Morphology Not Reportable 01/10/21 22:58 Dimorphic RBCs Not Reportable 01/10/21 22:58 Polychromasia Not Reportable 01/10/21 22:58 Hypochromasia 1+ 01/10/21 22:58 Poikilocytosis Not Reportable 01/10/21 22:58 Anisocytosis 1+ 01/10/21 22:58 Microcytosis 1+ 01/10/21 22:58 Macrocytosis Not Reportable 01/10/21 22:58 Spherocytes Not Reportable 01/10/21 22:58 Pappenheimer Bodies Not Reportable 01/10/21 22:58 Sickle Cells Not Reportable 01/10/21 22:58 Target Cells Not Reportable 01/10/21 22:58 Tear Drop Cells Not Reportable 01/10/21 22:58 Ovalocytes Not Reportable 01/10/21 22:58 Helmet Cells Not Reportable 01/10/21 22:58 [place] Bodies Not Reportable 01/10/21 22:58 [place] Rings Not Reportable 01/10/21 22:58 Dougie Cells Not Reportable 01/10/21 22:58 Bite Cells Not Reportable 01/10/21 22:58 Crenated Cell Not Reportable 01/10/21 22:58 Elliptocytes Not Reportable 01/10/21 22:58 Acanthocytes (Spur) Not Reportable 01/10/21 22:58 Rouleaux Not Reportable 01/10/21 22:58 Hemoglobin C Crystals Not Reportable 01/10/21 22:58 Schistocytes Not Reportable 01/10/21 22:58 Malaria parasites Not Reportable 01/10/21 22:58 Kirt Bodies Not Reportable 01/10/21 22:58 Hem Pathologist Commnt Sent to pathology 01/10/21 22:58 Sodium 139 mmol/L (137-145) 01/10/21 22:58 Potassium 3.9 mmol/L (3.6-5.0) 01/10/21 22:58 Chloride 99.6 mmol/L (98-107) 01/10/21 22:58 Carbon Dioxide 26 mmol/L (22-30) 01/10/21 22:58 Anion Gap 17 mmol/L 01/10/21 22:58 BUN 10 mg/dL (7-17) 01/10/21 22:58 Creatinine 0.4 mg/dL (0.6-1.2) L 01/10/21 22:58 Estimated GFR > 60 ml/min 01/10/21 22:58 BUN/Creatinine Ratio 25 % 01/10/21 22:58 Glucose 148 mg/dL (65-100) H 01/10/21 22:58 POC Glucose 89 mg/dL (70-105) 01/11/21 08:43 Calcium 8.2 mg/dL (8.4-10.2) L 01/10/21 22:58 Total Bilirubin 0.50 mg/dL (0.1-1.2) 01/10/21 22:58 Direct Bilirubin < 0.2 mg/dL (0-0.2) 01/10/21 22:58 Indirect Bilirubin 0.3 mg/dL 01/10/21 22:58 AST 33 units/L (5-40) 01/10/21 22:58 ALT 19 units/L (7-56) 01/10/21 22:58 Alkaline Phosphatase 312 units/L (35-129) H 01/10/21 22:58 Total Protein 6.0 g/dL (6.3-8.2) L 01/10/21 22:58 Albumin 2.3 g/dL (3.9-5) L 01/10/21 22:58 Albumin/Globulin Ratio 0.6 % 01/10/21 22:58 Urine Color Yellow (Yellow) 01/11/21 Unknown Urine Turbidity Clear (Clear) 01/11/21 Unknown Urine pH 5.0 (5.0-7.0) 01/11/21 Unknown Ur Specific [place] 1.051 (1.003-1.030) H 01/11/21 Unknown Urine Protein <15 mg/dl mg/dL (Negative) 01/11/21 Unknown Urine Glucose (UA) Neg mg/dL (Negative) 01/11/21 Unknown Urine Ketones Neg mg/dL (Negative) 01/11/21 Unknown Urine Blood Neg (Negative) 01/11/21 Unknown Urine Nitrite Neg (Negative) 01/11/21 Unknown Urine Bilirubin Neg (Negative) 01/11/21 Unknown Urine Urobilinogen < 2.0 mg/dL (<2.0) 01/11/21 Unknown Ur Leukocyte Esterase Sm (Negative) 01/11/21 Unknown Urine WBC (Auto) 7.0 /HPF (0.0-6.0) H 01/11/21 Unknown Urine RBC (Auto) 3.0 /HPF (0.0-6.0) 01/11/21 Unknown U Epithel Cells (Auto) 1.0 /HPF (0-13.0) 01/11/21 Unknown Agrawal/IV: Voiding Method External Female Catheter Active Medications - Current Medications Current Medications: Generic Name Dose Route Start Last Admin Trade Name Freq PRN Reason Stop Dose Admin Dextrose 50 ml 01/11/21 03:39 Dextrose 50% In Water (25gm) 50 Ml Syringe IV Q30MIN PRN Hypoglycemia Protocol Sodium Chloride 1,000 mls @ 75 mls/hr 01/11/21 03:45 01/11/21 06:15 Nacl 0.9% 1000 Ml IV 75 mls/hr DIRECT MIRTA Administration Levofloxacin/Dextrose 750 mg in 150 mls @ 100 mls/hr 01/12/21 02:00 Levaquin 750mg/150ml IV Q24H MIRTA Protocol Piperacillin Sod/Tazobactam Sod 4.5 gm in 100 mls @ 200 mls/hr 01/11/21 05:00 01/11/21 05:27 Zosyn/Ns 4.5gm/100ml IV 200 mls/hr Q8H MIRTA Administration Protocol Insulin Human Lispro 0 unit 01/11/21 07:30 01/11/21 08:00 Insulin Lispro 100 Unit/Ml SUB-Q Not Given ACHS [facility] Protocol Magnesium Hydroxide 30 ml 01/11/21 03:39 Magnesium Hydroxide (Mom) Oral Liqd Udc PO Q4H PRN Constipation Morphine Sulfate 2 mg 01/11/21 03:39 01/11/21 10:11 Morphine 2 Mg/1 Ml Inj IV 2 mg Q4H PRN Administration Pain, Moderate (4-6) Ondansetron HCl 4 mg 01/11/21 03:39 Ondansetron 4 Mg/2 Ml Inj IV Q8H PRN Nausea And Vomiting Sodium Chloride 10 ml 01/11/21 10:00 01/11/21 10:11 Sodium Chloride 0.9% 10 Ml Flush Syringe IV 10 ml BID MIRTA Administration Sodium Chloride 10 ml 01/11/21 03:39 Sodium Chloride 0.9% 10 Ml Flush Syringe IV PRN PRN LINE FLUSH
[2021-01-11 13:16] LABS: Hematocrit 24.3 % (30.3-42.9); Mean Corpuscular HGB Conc 33 % (30-34); Platelet Count 272 K/mm3 (140-440)
[2021-01-11 13:21] LABS: Mean Corpuscular Volume 67 fl (79-97); Red Cell Distribution Width 23.4 % (13.2-15.2)
[2021-01-11 13:38] LABS: Blood Urea Nitrogen 9 mg/dL (7-17); Hemolysis Index 2
[2021-01-11 13:45] LABS: BUN/Creatinine Ratio 30
--- NOTE | 2021-01-11 13:49 | Hem/Onc Consultation ---
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 There is complete consolidation of the right lower lobe with air bronchogram suggesting pneumonia. There is also a lesser degree of airspace disease in the left lung. CT of the abdomen and pelvis was suggestive or concerning for acute cholecystitis, peritoneal carcinomatosis, complaints enhancing solid mass within the upper pole of the left kidney and this could represent a renal metastasis. Enlarged heterogeneous uterus. Laboratory Last Values WBC 29.8 K/mm3 (4.5-11.0) H 01/11/21 12:45 Hgb 8.0 gm/dl (10.1-14.3) L 01/11/21 12:45 Hct 24.3 % (30.3-42.9) L 01/11/21 12:45 MCV 67 fl (79-97) L 01/11/21 12:45 Plt Count 272 K/mm3 (140-440) 01/11/21 12:45 Seg Neutrophils # Man 34.3 K/mm3 (1.8-7.7) H 01/10/21 22:58 Creatinine 0.3 mg/dL (0.6-1.2) L 01/11/21 12:45 AST 33 units/L (5-40) 01/10/21 22:58 ALT 19 units/L (7-56) 01/10/21 22:58 Alkaline Phosphatase 312 units/L (35-129) H 01/10/21 22:58 Total Protein 6.0 g/dL (6.3-8.2) L 01/10/21 22:58 Albumin 2.3 g/dL (3.9-5) L 01/10/21 22:58 z U Epithel Cells (Auto) 1.0 /HPF (0-13.0) 01/11/21 Unknown Past History Past Medical History: diabetes, other (Cervical cancer with bone and brain metastasis) Past Surgical History: No surgical history Social history: no significant social history Medications and Allergies Allergies Allergy/AdvReac Type Severity Reaction Status Date / Time No Known Allergies Allergy Verified 08/09/14 15:15 Home Medications Medication Instructions Recorded Confirmed Last Taken Type Cyclobenzaprine [Flexeril 10mg] 10 mg PO BID PRN #20 tablet 08/09/14 01/11/21 01/10/21 19:00 Rx Ibuprofen [Motrin 800 MG tab] 800 mg PO BID PRN #30 tablet 08/09/14 01/11/21 Unknown Rx Butalb/Acetamin/Caff 50-325-40 1 tab PO Q8HR PRN 01/11/21 01/11/21 01/10/21 19:00 History [Fioricet 50-325-40] LORazepam [Lorazepam] 1 tab PO PRN 01/11/21 01/11/21 01/10/21 19:00 History dexAMETHasone [Dexamethasone] 2 mg PO BID 01/11/21 01/11/21 01/10/21 15:00 History Active Meds: Active Medications Dextrose (Dextrose 50% In Water (25gm) 50 Ml Syringe) 50 ml IV Q30MIN PRN; Protocol PRN Reason: Hypoglycemia Hydromorphone HCl (Hydromorphone 2 Mg/1 Ml Inj) 2 mg IV Q3H PRN PRN Reason: Pain , Severe (7-10) Sodium Chloride (Nacl 0.9% 1000 Ml) 1,000 mls @ 75 mls/hr IV DIRECT [facility] Last Admin: 01/11/21 06:15 Dose: 75 mls/hr Documented by: Levofloxacin/Dextrose (Levaquin 750mg/150ml) 750 mg in 150 mls @ 100 mls/hr IV Q24H [facility]; Protocol Piperacillin Sod/Tazobactam Sod (Zosyn/Ns 4.5gm/100ml) 4.5 gm in 100 mls @ 200 mls/hr IV Q8H [facility]; Protocol Last Admin: 01/11/21 13:27 Dose: 200 mls/hr Documented by: Insulin Human Lispro (Insulin Lispro 100 Unit/Ml) 0 unit SUB-Q ACHS [facility]; Protocol Last Admin: 01/11/21 08:00 Dose: Not Given Documented by: Magnesium Hydroxide (Magnesium Hydroxide (Mom) Oral Liqd Udc) 30 ml PO Q4H PRN PRN Reason: Constipation Methylprednisolone Sodium Succinate (Methylprednisolone Sod Succinate 125 Mg/2 Ml Inj) 60 mg IV Q12H [facility] Stop: 01/13/21 13:59 Morphine Sulfate (Morphine 2 Mg/1 Ml Inj) 2 mg IV Q4H PRN PRN Reason: Pain, Moderate (4-6) Last Admin: 01/11/21 10:11 Dose: 2 mg Documented by: Morphine Sulfate (Morphine 30 Mg Er Tab) 30 mg PO Q12HR [facility] Ondansetron HCl (Ondansetron 4 Mg/2 Ml Inj) 4 mg IV Q8H PRN PRN Reason: Nausea And Vomiting Sodium Chloride (Sodium Chloride 0.9% 10 Ml Flush Syringe) 10 ml IV BID [facility] Last Admin: 01/11/21 10:11 Dose: 10 ml Documented by: Sodium Chloride (Sodium Chloride 0.9% 10 Ml Flush Syringe) 10 ml IV PRN PRN PRN Reason: LINE FLUSH Exam - Constitutional Vitals: Last Vital Signs Temp 97.7 F 01/11/21 08:00 Pulse 105 H 01/11/21 10:01 Resp 23 01/11/21 10:01 BP 93/56 01/11/21 10:01 Pulse Ox 98 01/11/21 10:01 Results - Labs lab Results: Laboratory Results - last 24 hr 01/10/21 01/10/21 01/11/21 22:58 22:58 08:43 WBC 37.7 H RBC 4.03 Hgb 9.0 L Hct 27.7 L MCV 69 L MCH 22 L MCHC 33 RDW 23.7 H Plt Count 322 Add Manual Diff Complete Total Counted 100 Seg Neutrophils % Accounting Administrator Seg Neuts % (Manual) 91.0 H Lymphocytes % (Manual) 2.0 L Monocytes % (Manual) 7.0 Nucleated RBC % Not Reportable Seg Neutrophils # Man 34.3 H Band Neutrophils # 0.0 Lymphocytes # (Manual) 0.8 L Abs React Lymphs (Man) 0.0 Monocytes # (Manual) 2.6 H Eosinophils # (Manual) 0.0 Basophils # (Manual) 0.0 Metamyelocytes # 0.0 Myelocytes # 0.0 Promyelocytes # 0.0 Blast Cells # 0.0 Pathologist Review Hypersegmented Neuts Not Reportable Hyposegmented Neuts Not Reportable Hypogranular Neuts Not Reportable Smudge Cells Not Reportable Toxic Granulation Not Reportable Toxic Vacuolation Not Reportable Dohle Bodies Not Reportable Pelger-Huet Anomaly Not Reportable Dat Rods Not Reportable Platelet Estimate Not Reportable Clumped Platelets Not Reportable Plt Clumps, EDTA Not Reportable Large Platelets Not Reportable Giant Platelets Not Reportable Platelet Satelliting Not Reportable Plt Morphology Comment Not Reportable RBC Morphology Not Reportable Dimorphic RBCs Not Reportable Polychromasia Not Reportable Hypochromasia 1+ Poikilocytosis Not Reportable Anisocytosis 1+ Microcytosis 1+ Macrocytosis Not Reportable Spherocytes Not Reportable Pappenheimer Bodies Not Reportable Sickle Cells Not Reportable Target Cells Not Reportable Tear Drop Cells Not Reportable Ovalocytes Not Reportable Helmet Cells Not Reportable Ash-Storla Bodies Not Reportable Ragland Rings Not Reportable Dougie Cells Not Reportable Bite Cells Not Reportable Crenated Cell Not Reportable Elliptocytes Not Reportable Acanthocytes (Spur) Not Reportable Rouleaux Not Reportable Hemoglobin C Crystals Not Reportable Schistocytes Not Reportable Malaria parasites Not Reportable Kirt Bodies Not Reportable Hem Pathologist Commnt Sent to pathology Sodium 139 Potassium 3.9 Chloride 99.6 Carbon Dioxide 26 Anion Gap 17 BUN 10 Creatinine 0.4 L Estimated GFR > 60 BUN/Creatinine Ratio 25 Glucose 148 H POC Glucose 89 Calcium 8.2 L Total Bilirubin 0.50 Direct Bilirubin < 0.2 Indirect Bilirubin 0.3 AST 33 ALT 19 Alkaline Phosphatase 312 H Total Protein 6.0 L Albumin 2.3 L Albumin/Globulin Ratio 0.6 Urine Color Urine Turbidity Urine pH Ur Specific [place] Urine Protein Urine Glucose (UA) Urine Ketones Urine Blood Urine Nitrite Urine Bilirubin Urine Urobilinogen Ur Leukocyte Esterase Urine WBC (Auto) Urine RBC (Auto) U Epithel Cells (Auto) 01/11/21 01/11/21 01/11/21 11:39 12:45 12:45 WBC 29.8 H RBC 3.60 L Hgb 8.0 L Hct 24.3 L MCV 67 L MCH 22 L MCHC 33 RDW 23.4 H Plt Count 272 Add Manual Diff Total Counted Seg Neutrophils % Accounting Administrator Seg Neuts % (Manual) Lymphocytes % (Manual) Monocytes % (Manual) Nucleated RBC % Seg Neutrophils # Man Band Neutrophils # Lymphocytes # (Manual) Abs React Lymphs (Man) Monocytes # (Manual) Eosinophils # (Manual) Basophils # (Manual) Metamyelocytes # Myelocytes # Promyelocytes # Blast Cells # Pathologist Review Hypersegmented Neuts Hyposegmented Neuts Hypogranular Neuts Smudge Cells Toxic Granulation Toxic Vacuolation Dohle Bodies Pelger-Huet Anomaly Dat Rods Platelet Estimate Clumped Platelets Plt Clumps, EDTA Large Platelets Giant Platelets Platelet Satelliting Plt Morphology Comment RBC Morphology Dimorphic RBCs Polychromasia Hypochromasia Poikilocytosis Anisocytosis Microcytosis Macrocytosis Spherocytes Pappenheimer Bodies Sickle Cells Target Cells Tear Drop Cells Ovalocytes Helmet Cells Ash-Storla Bodies Ragland Rings Dougie Cells Bite Cells Crenated Cell Elliptocytes Acanthocytes (Spur) Rouleaux Hemoglobin C Crystals Schistocytes Malaria parasites Kirt Bodies Hem Pathologist Commnt Sodium 139 Potassium 3.3 L Chloride 104.9 Carbon Dioxide 25 Anion Gap 12 BUN 9 Creatinine 0.3 L Estimated GFR > 60 BUN/Creatinine Ratio 30 Glucose 116 H POC Glucose 71 Calcium 8.0 L Total Bilirubin Direct Bilirubin Indirect Bilirubin AST ALT Alkaline Phosphatase Total Protein Albumin Albumin/Globulin Ratio Urine Color Urine Turbidity Urine pH Ur Specific [place] Urine Protein Urine Glucose (UA) Urine Ketones Urine Blood Urine Nitrite Urine Bilirubin Urine Urobilinogen Ur Leukocyte Esterase Urine WBC (Auto) Urine RBC (Auto) U Epithel Cells (Auto) 01/11/21 Unknown WBC RBC Hgb Hct MCV MCH MCHC RDW Plt Count Add Manual Diff Total Counted Seg Neutrophils % Seg Neuts % (Manual) Lymphocytes % (Manual) Monocytes % (Manual) Nucleated RBC % Seg Neutrophils # Man Band Neutrophils # Lymphocytes # (Manual) Abs React Lymphs (Man) Monocytes # (Manual) Eosinophils # (Manual) Basophils # (Manual) Metamyelocytes # Myelocytes # Promyelocytes # Blast Cells # Pathologist Review Hypersegmented Neuts Hyposegmented Neuts Hypogranular Neuts Smudge Cells Toxic Granulation Toxic Vacuolation Dohle Bodies Pelger-Huet Anomaly Dat Rods Platelet Estimate Clumped Platelets Plt Clumps, EDTA Large Platelets Giant Platelets Platelet Satelliting Plt Morphology Comment RBC Morphology Dimorphic RBCs Polychromasia Hypochromasia Poikilocytosis Anisocytosis Microcytosis Macrocytosis Spherocytes Pappenheimer Bodies Sickle Cells Target Cells Tear Drop Cells Ovalocytes Helmet Cells Ash-Storla Bodies Ragland Rings Dougie Cells Bite Cells Crenated Cell Elliptocytes Acanthocytes (Spur) Rouleaux Hemoglobin C Crystals Schistocytes Malaria parasites Kirt Bodies Hem Pathologist Commnt Sodium Potassium Chloride Carbon Dioxide Anion Gap BUN Creatinine Estimated GFR BUN/Creatinine Ratio Glucose POC Glucose Calcium Total Bilirubin Direct Bilirubin Indirect Bilirubin AST ALT Alkaline Phosphatase Total Protein Albumin Albumin/Globulin Ratio Urine Color Yellow Urine Turbidity Clear Urine pH 5.0 Ur Specific [place] 1.051 H Urine Protein <15 mg/dl Urine Glucose (UA) Neg Urine Ketones Neg Urine Blood Neg Urine Nitrite Neg Urine Bilirubin Neg Urine Urobilinogen < 2.0 Ur Leukocyte Esterase Sm Urine WBC (Auto) 7.0 H Urine RBC (Auto) 3.0 U Epithel Cells (Auto) 1.0
[2021-01-11] MEDS: methylPREDNISolone Sod Succinate 125 MG/2 ML INJ IV SCH (14:46)
[2021-01-11] MEDS: MORPHINE 30 MG ER TAB PO SCH ×2 (14:46→22:51)
--- NOTE | 2021-01-11 14:59 | Consultation ---
History of Present Illness Consult date: 01/11/21 Reason for consult: abdominal pain Chief complaint: Abdominal pain - History of present illness History of present illness: 55-year-old female with a history of metastatic cervical cancer who presented to the emergency room with complaints of generalized pain and weakness. Patient states that she has been having generalized abdominal pain for the last 1 week. She cannot characterize the pain but states that it is gradually been getting worse. It is not located in any particular quadrant. She states she has been tolerating a diet without nausea or vomiting. No fevers or chills. She has been having bowel movements. Patient also complains of arm pain and back pain. Past History Past Medical History: diabetes, other (Cervical cancer with bone and brain metastasis) Past Surgical History: No surgical history Social history: no significant social history Medications and Allergies Allergies Allergy/AdvReac Type Severity Reaction Status Date / Time No Known Allergies Allergy Verified 08/09/14 15:15 Home Medications Medication Instructions Recorded Confirmed Last Taken Type Cyclobenzaprine [Flexeril 10mg] 10 mg PO BID PRN #20 tablet 08/09/14 01/11/21 01/10/21 19:00 Rx Ibuprofen [Motrin 800 MG tab] 800 mg PO BID PRN #30 tablet 08/09/14 01/11/21 Unknown Rx Butalb/Acetamin/Caff 50-325-40 1 tab PO Q8HR PRN 01/11/21 01/11/21 01/10/21 19:00 History [Fioricet 50-325-40] LORazepam [Lorazepam] 1 tab PO PRN 01/11/21 01/11/21 01/10/21 19:00 History dexAMETHasone [Dexamethasone] 2 mg PO BID 01/11/21 01/11/21 01/10/21 15:00 History Active Meds: Active Medications Dextrose (Dextrose 50% In Water (25gm) 50 Ml Syringe) 50 ml IV Q30MIN PRN; Protocol PRN Reason: Hypoglycemia Hydromorphone HCl (Hydromorphone 2 Mg/1 Ml Inj) 2 mg IV Q3H PRN PRN Reason: Pain , Severe (7-10) Sodium Chloride (Nacl 0.9% 1000 Ml) 1,000 mls @ 75 mls/hr IV DIRECT [facility] Last Admin: 01/11/21 06:15 Dose: 75 mls/hr Documented by: Levofloxacin/Dextrose (Levaquin 750mg/150ml) 750 mg in 150 mls @ 100 mls/hr IV Q24H [facility]; Protocol Piperacillin Sod/Tazobactam Sod (Zosyn/Ns 4.5gm/100ml) 4.5 gm in 100 mls @ 200 mls/hr IV Q8H [facility]; Protocol Last Admin: 01/11/21 13:27 Dose: 200 mls/hr Documented by: Insulin Human Lispro (Insulin Lispro 100 Unit/Ml) 0 unit SUB-Q ACHS [facility]; Protocol Last Admin: 01/11/21 08:00 Dose: Not Given Documented by: Magnesium Hydroxide (Magnesium Hydroxide (Mom) Oral Liqd Udc) 30 ml PO Q4H PRN PRN Reason: Constipation Methylprednisolone Sodium Succinate (Methylprednisolone Sod Succinate 125 Mg/2 Ml Inj) 60 mg IV Q12H [facility] Stop: 01/13/21 13:59 Morphine Sulfate (Morphine 30 Mg Er Tab) 30 mg PO Q12HR [facility] Ondansetron HCl (Ondansetron 4 Mg/2 Ml Inj) 4 mg IV Q8H PRN PRN Reason: Nausea And Vomiting Sodium Chloride (Sodium Chloride 0.9% 10 Ml Flush Syringe) 10 ml IV BID [facility] Last Admin: 01/11/21 10:11 Dose: 10 ml Documented by: Sodium Chloride (Sodium Chloride 0.9% 10 Ml Flush Syringe) 10 ml IV PRN PRN PRN Reason: LINE FLUSH Review of Systems All systems: negative (10 point ROS performed and negative except for that listed in HPI) Exam Vital Signs Temp Pulse Resp BP Pulse Ox 97.8 F 155 H 22 104/63 93 01/10/21 21:56 01/10/21 21:56 01/10/21 21:56 01/10/21 21:56 01/10/21 21:56 Narrative exam: Gen.: Awake, alert, oriented x3. No apparent distress ENT: Trachea midline. No lymphadenopathy. No scleral icterus or conjunctival pallor CV: S1, S2 present Respiratory: No audible wheezes Abdomen: Soft, nondistended, nontender. No rebound, rigidity, guarding Extremities: No clubbing, cyanosis, edema Results - Labs 01/11/21 12:45 01/11/21 12:45 Abnormal lab results 06/04/2401/10/21 01/11/21 Range/Units 22:58 22:58 12:45 WBC 37.7 H 29.8 H (4.5-11.0) K/mm3 RBC 3.60 L (3.65-5.03) M/mm3 Hgb 9.0 L 8.0 L (10.1-14.3) gm/dl Hct 27.7 L 24.3 L (30.3-42.9) % MCV 69 L 67 L (79-97) fl MCH 22 L 22 L (28-32) pg RDW 23.7 H 23.4 H (13.2-15.2) % Seg Neuts % (Manual) 91.0 H (40.0-70.0) % Lymphocytes % (Manual) 2.0 L (13.4-35.0) % Seg Neutrophils # Man 34.3 H (1.8-7.7) K/mm3 Lymphocytes # (Manual) 0.8 L (1.2-5.4) K/mm3 Monocytes # (Manual) 2.6 H (0.0-0.8) K/mm3 Potassium (3.6-5.0) mmol/L Creatinine 0.4 L (0.6-1.2) mg/dL Glucose 148 H (65-100) mg/dL Calcium 8.2 L (8.4-10.2) mg/dL Alkaline Phosphatase 312 H (35-129) units/L Total Protein 6.0 L (6.3-8.2) g/dL Albumin 2.3 L (3.9-5) g/dL Ur Specific [place] (1.003-1.030) Urine WBC (Auto) (0.0-6.0) /HPF 01/11/21 01/11/21 Range/Units 12:45 Unknown WBC (4.5-11.0) K/mm3 RBC (3.65-5.03) M/mm3 Hgb (10.1-14.3) gm/dl Hct (30.3-42.9) % MCV (79-97) fl MCH (28-32) pg RDW (13.2-15.2) % Seg Neuts % (Manual) (40.0-70.0) % Lymphocytes % (Manual) (13.4-35.0) % Seg Neutrophils # Man (1.8-7.7) K/mm3 Lymphocytes # (Manual) (1.2-5.4) K/mm3 Monocytes # (Manual) (0.0-0.8) K/mm3 Potassium 3.3 L (3.6-5.0) mmol/L Creatinine 0.3 L (0.6-1.2) mg/dL Glucose 116 H (65-100) mg/dL Calcium 8.0 L (8.4-10.2) mg/dL Alkaline Phosphatase (35-129) units/L Total Protein (6.3-8.2) g/dL Albumin (3.9-5) g/dL Ur Specific [place] 1.051 H (1.003-1.030) Urine WBC (Auto) 7.0 H (0.0-6.0) /HPF Diabetes panel 01/10/21 01/11/21 Range/Units 22:58 12:45 Sodium 139 139 (137-145) mmol/L Potassium 3.9 3.3 L (3.6-5.0) mmol/L Chloride 99.6 104.9 (98-107) mmol/L Carbon Dioxide 26 25 (22-30) mmol/L BUN 10 9 (7-17) mg/dL Creatinine 0.4 L 0.3 L (0.6-1.2) mg/dL Glucose 148 H 116 H (65-100) mg/dL Calcium 8.2 L 8.0 L (8.4-10.2) mg/dL AST 33 (5-40) units/L ALT 19 (7-56) units/L Alkaline Phosphatase 312 H (35-129) units/L Total Protein 6.0 L (6.3-8.2) g/dL Albumin 2.3 L (3.9-5) g/dL Calcium panel 01/10/21 01/11/21 Range/Units 22:58 12:45 Calcium 8.2 L 8.0 L (8.4-10.2) mg/dL Albumin 2.3 L (3.9-5) g/dL Pituitary panel 01/10/21 01/11/21 Range/Units 22:58 12:45 Sodium 139 139 (137-145) mmol/L Potassium 3.9 3.3 L (3.6-5.0) mmol/L Chloride 99.6 104.9 (98-107) mmol/L Carbon Dioxide 26 25 (22-30) mmol/L BUN 10 9 (7-17) mg/dL Creatinine 0.4 L 0.3 L (0.6-1.2) mg/dL Glucose 148 H 116 H (65-100) mg/dL Calcium 8.2 L 8.0 L (8.4-10.2) mg/dL Adrenal panel 01/10/21 01/11/21 Range/Units 22:58 12:45 Sodium 139 139 (137-145) mmol/L Potassium 3.9 3.3 L (3.6-5.0) mmol/L Chloride 99.6 104.9 (98-107) mmol/L Carbon Dioxide 26 25 (22-30) mmol/L BUN 10 9 (7-17) mg/dL Creatinine 0.4 L 0.3 L (0.6-1.2) mg/dL Glucose 148 H 116 H (65-100) mg/dL Calcium 8.2 L 8.0 L (8.4-10.2) mg/dL Total Bilirubin 0.50 (0.1-1.2) mg/dL AST 33 (5-40) units/L ALT 19 (7-56) units/L Alkaline Phosphatase 312 H (35-129) units/L Total Protein 6.0 L (6.3-8.2) g/dL Albumin 2.3 L (3.9-5) g/dL - Imaging CT scan - abdomen: report reviewed, image reviewed CT scan - chest: report reviewed, image reviewed CT scan - pelvis: report reviewed, image reviewed US - abdomen: image reviewed Assessment and Plan 55 yo F with 1. metastatic cervical cancer affecting liver, lungs, peritoneum 2. cholelithiasis Plan: 1. On reg diet and tolerating 2. prn pain control - Pain likely secondary to abdominal metastatic disease 3. Patient has asymptomatic cholelithiasis. No evidence of acute cholecystitis on U/s - I do not recommend surgical intervention. 4. Onc recs reviewed - recommend palliative care Will s/o Thank you, please call with questions.
[2021-01-11] MEDS: HYDROmorphone 2 MG/1 ML INJ IV PRN ×2 (15:32→20:22)
[2021-01-11 16:04] LABS: Anisocytosis 1+; Hypochromasia 1+; Total Cells Counted 100
--- NOTE | 2021-01-11 16:36 | Ultrasound Report ---
ULTRASOUND ABDOMEN, COMPLETE INDICATION: cholelithiasis, abd pain. COMPARISON: CT abdomen pelvis dated January 10, 2021 FINDINGS: Pancreas: Obscured by overlying bowel gas Abdominal Aorta: Normal. IVC: Normal. Liver: Multiple hypoechoic lesions scattered throughout the liver. Gallbladder: Cholelithiasis present Bile ducts: Normal. Common Bile Duct measures 6 mm. Right Kidney: Normal. Left Kidney: 4.9 cm predominance solid lesion left kidney Spleen: Normal. Free fluid: None. Additional Findings: None. IMPRESSION: 1. Complex predominantly solid lesion left kidney, primary renal cell carcinoma versus metastatic les ion should be considered 2. Diffuse hepatic metastasis 3. Cholelithiasis Signer Name: Candelario Mart MD Signed: 01/11/2021 4:32 PM Workstation Name: [id number]
[2021-01-12] MEDS: methylPREDNISolone Sod Succinate 125 MG/2 ML INJ IV SCH ×2 (01:37→14:30)
[2021-01-12] MEDS: SODIUM CHLORIDE 0.9% 1000 ML 1,000 ML IV SCH (05:48)
[2021-01-12] MEDS: PIPERACIL/TAZOBACTA 4.5/NS 100 4.5 GM/100 ML VIAL IV SCH ×3 (05:48→21:12)
[2021-01-12 08:10] LABS: Iron 23 ug/dL (37-170); Total Iron Binding Capacity 78 mcg/dL (250-450)
--- NOTE | 2021-01-12 08:42 | Discharge Summary ---
Providers - Providers Date of Admission: 01/11/21 03:08 Date of discharge: 01/12/21 Attending physician: LALITA JURADO 01/11/21 03:08 Consult to Physician [CONS] Routine Comment: Consulting Provider: ASHLEY PIERRE Physician Instructions: Reason For Exam: acute jessica 01/11/21 03:40 Consult to Dietitian/Nutrition [CONS] Routine Physician Instructions: Reason For Exam: Reason for Consult: Diet education 01/11/21 03:46 Consult to Dietitian/Nutrition [CONS] Routine Physician Instructions: Reason For Exam: Reason for Consult: Diet education 01/11/21 10:57 Consult to Physician [CONS] Routine Comment: Consulting Provider: LINDA BONE Physician Instructions: Reason For Exam: metastatic cervical cancer Primary care physician: TANK OPERATOR Hospitalization Reason for admission: abd pain Condition: Critical Hospital course: 55-year-old female with a history of metastatic cervical cancer who presented to the emergency room with complaints of generalized pain and weakness. Patient stated that she has been having generalized abdominal pain for the last 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 CT of the abdomen and pelvis was suggestive or concerning for acute cholecystitis, peritoneal carcinomatosis, complaints enhancing solid mass within the upper pole of the left kidney and this could represent a renal metastasis. The patient was admitted with diagnosis of questionable cholecystitis, metastatic cervical cancer, abdominal pain and generalized weakness. Surgery evaluated the patient and ruled out cholecystitis on ultrasound and noted patient likely has asymptomatic cholelithiasis. Pain likely secondary to abdominal metastatic disease. Recommendations were for palliative care/hospice. Case management was consulted to rearrange hospice as inpatient. Dedicated discharge time 35 minutes. Disposition: [place]- HOSPICE ([facility]) Final Discharge Diagnosis (Prints w/discharge instructions): Metastatic cervical cancer affecting liver, lungs, peritoneum. Cholelithiasis. Abdominal pain Core Measure Documentation - Palliative Care Palliative Care/ Comfort Measures: Not Applicable - Core Measures Any of the following diagnoses?: none Exam - Constitutional Vitals: Temp Pulse Resp BP Pulse Ox 98.4 F 95 H 18 131/68 96 01/12/21 07:00 01/12/21 07:00 01/12/21 07:00 01/12/21 07:00 01/12/21 07:00 General appearance: Present: no acute distress, well-nourished - EENT Eyes: Present: PERRL ENT: hearing intact, clear oral mucosa - Neck Neck: Present: supple, normal ROM - Respiratory Respiratory effort: normal Respiratory: bilateral: CTA - Cardiovascular Heart Sounds: Present: S1 & S2. Absent: rub, click - Extremities Extremities: pulses symmetrical, No edema Peripheral Pulses: within normal limits - Abdominal General gastrointestinal: Present: soft, non-tender, non-distended, normal bowel sounds Female genitourinary: Present: normal - Integumentary Integumentary: Present: clear, warm, dry - Musculoskeletal Musculoskeletal: gait normal, strength equal bilaterally - Psychiatric Psychiatric: appropriate mood/affect, intact judgment & insight - Neurologic Neurologic: CNII-XII intact, moves all extremities Plan Activity: advance as tolerated Weight Bearing Status: Weight Bear as Tolerated Diet: regular Follow up with: PRIMARY CARE, [Primary Care Provider] - 3-5 Days
[2021-01-12] MEDS: INSULIN LISPRO 100 UNIT/ML SUB-Q SCH ×4 (08:50→21:15)
[2021-01-12] MEDS: MORPHINE 30 MG ER TAB PO SCH ×2 (10:07→21:16)
--- NOTE | 2021-01-12 10:22 | Progress Note ---
Assessment and Plan Assessment and plan: Acute cholecystitis Metastatic cervical cancer Pneumonia Acute hypoxic respiratory failure Sepsis 01/11/2021. Await surgery evaluation. 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 There is complete consolidation of the right lower lobe with air bronchogram suggesting pneumonia. There is also a lesser degree of airspace disease in the left lung. CT of the abdomen and pelvis was suggestive or concerning for acute cholecystitis, peritoneal carcinomatosis, complaints enhancing solid mass within the upper pole of the left kidney and this could represent a renal metastasis. Oncology consultation 01/12/2021. Surgery reports that patient has asymptomatic cholelithiasis and no evidence of acute cholecystitis on ultrasound. No recommendations for surgical intervention. Continue regular diet which she is tolerating. Continue pain control. Pain is likely secondary to abdominal metastatic disease. Surgery and oncology recommended palliative care. Patient was previously on hospice. I have attempted to contact the Sister Sue with regards to plans for discharge. Continue antibiotics for pneumonia. History Interval history: No new issues overnight. Hospitalist Physical - Constitutional Vitals: Temp Pulse Resp BP Pulse Ox 98.4 F 95 H 18 131/68 96 01/12/21 07:00 01/12/21 07:00 01/12/21 07:00 01/12/21 07:00 01/12/21 07:00 General appearance: Present: mild distress, well-nourished, other (Appears lethargic) - EENT Eyes: Present: PERRL, EOM intact ENT: hearing intact, clear oral mucosa, dentition normal - Neck Neck: Present: supple, normal ROM - Respiratory Respiratory effort: normal Respiratory: bilateral: CTA - Cardiovascular Rhythm: regular Heart Sounds: Present: S1 & S2. Absent: gallop, rub - Extremities Extremities: no ischemia, No edema, Full ROM - Abdominal General gastrointestinal: soft, non-tender, non-distended, normal bowel sounds - Integumentary Integumentary: Present: clear, warm, dry - Neurologic Neurologic: CNII-XII intact, moves all extremities Results - Labs CBC & Chem 7: 01/11/21 12:45 01/11/21 12:45 Labs: Laboratory Last Values WBC 29.8 K/mm3 (4.5-11.0) H 01/11/21 12:45 RBC 3.60 M/mm3 (3.65-5.03) L 01/11/21 12:45 Hgb 8.0 gm/dl (10.1-14.3) L 01/11/21 12:45 Hct 24.3 % (30.3-42.9) L 01/11/21 12:45 MCV 67 fl (79-97) L 01/11/21 12:45 MCH 22 pg (28-32) L 01/11/21 12:45 MCHC 33 % (30-34) 01/11/21 12:45 RDW 23.4 % (13.2-15.2) H 01/11/21 12:45 Plt Count 272 K/mm3 (140-440) 01/11/21 12:45 Add Manual Diff Complete 01/11/21 12:45 Total Counted 100 01/11/21 12:45 Seg Neutrophils % Casing Trimmer 01/11/21 12:45 Seg Neuts % (Manual) 91.0 % (40.0-70.0) H 01/11/21 12:45 Lymphocytes % (Manual) 3.0 % (13.4-35.0) L 01/11/21 12:45 Monocytes % (Manual) 6.0 % (0.0-7.3) 01/11/21 12:45 Nucleated RBC % Not Reportable 01/11/21 12:45 Seg Neutrophils # Man 27.1 K/mm3 (1.8-7.7) H 01/11/21 12:45 Band Neutrophils # 0.0 K/mm3 01/11/21 12:45 Lymphocytes # (Manual) 0.9 K/mm3 (1.2-5.4) L 01/11/21 12:45 Abs React Lymphs (Man) 0.0 K/mm3 01/11/21 12:45 Monocytes # (Manual) 1.8 K/mm3 (0.0-0.8) H 01/11/21 12:45 Eosinophils # (Manual) 0.0 K/mm3 (0.0-0.4) 01/11/21 12:45 Basophils # (Manual) 0.0 K/mm3 (0.0-0.1) 01/11/21 12:45 Metamyelocytes # 0.0 K/mm3 01/11/21 12:45 Myelocytes # 0.0 K/mm3 01/11/21 12:45 Promyelocytes # 0.0 K/mm3 01/11/21 12:45 Blast Cells # 0.0 K/mm3 01/11/21 12:45 Pathologist Review 01/10/21 22:58 WBC Morphology Not Reportable 01/11/21 12:45 Hypersegmented Neuts Not Reportable 01/11/21 12:45 Hyposegmented Neuts Not Reportable 01/11/21 12:45 Hypogranular Neuts Not Reportable 01/11/21 12:45 Smudge Cells Not Reportable 01/11/21 12:45 Toxic Granulation Not Reportable 01/11/21 12:45 Toxic Vacuolation Not Reportable 01/11/21 12:45 Dohle Bodies Not Reportable 01/11/21 12:45 Pelger-Huet Anomaly Not Reportable 01/11/21 12:45 Dat Rods Not Reportable 01/11/21 12:45 Platelet Estimate Not Reportable 01/11/21 12:45 Clumped Platelets Not Reportable 01/11/21 12:45 Plt Clumps, EDTA Not Reportable 01/11/21 12:45 Large Platelets Not Reportable 01/11/21 12:45 Giant Platelets Not Reportable 01/11/21 12:45 Platelet Satelliting Not Reportable 01/11/21 12:45 Plt Morphology Comment Not Reportable 01/11/21 12:45 RBC Morphology Not Reportable 01/11/21 12:45 Dimorphic RBCs Not Reportable 01/11/21 12:45 Polychromasia Not Reportable 01/11/21 12:45 Hypochromasia 1+ 01/11/21 12:45 Poikilocytosis Not Reportable 01/11/21 12:45 Anisocytosis 1+ 01/11/21 12:45 Microcytosis 1+ 01/11/21 12:45 Macrocytosis Not Reportable 01/11/21 12:45 Spherocytes Not Reportable 01/11/21 12:45 Pappenheimer Bodies Not Reportable 01/11/21 12:45 Sickle Cells Not Reportable 01/11/21 12:45 Target Cells Not Reportable 01/11/21 12:45 Tear Drop Cells Not Reportable 01/11/21 12:45 Ovalocytes Not Reportable 01/11/21 12:45 Helmet Cells Not Reportable 01/11/21 12:45 [place] Bodies Not Reportable 01/11/21 12:45 [place] Rings Not Reportable 01/11/21 12:45 [place] Cells Not Reportable 01/11/21 12:45 Bite Cells Not Reportable 01/11/21 12:45 Crenated Cell Not Reportable 01/11/21 12:45 Elliptocytes Not Reportable 01/11/21 12:45 Acanthocytes (Spur) Not Reportable 01/11/21 12:45 Rouleaux Not Reportable 01/11/21 12:45 Hemoglobin C Crystals Not Reportable 01/11/21 12:45 Schistocytes Not Reportable 01/11/21 12:45 Malaria parasites Not Reportable 01/11/21 12:45 [place] Bodies Not Reportable 01/11/21 12:45 Hem Pathologist Commnt No 01/11/21 12:45 Sodium 139 mmol/L (137-145) 01/11/21 12:45 Potassium 3.3 mmol/L (3.6-5.0) L 01/11/21 12:45 Chloride 104.9 mmol/L (98-107) 01/11/21 12:45 Carbon Dioxide 25 mmol/L (22-30) 01/11/21 12:45 Anion Gap 12 mmol/L 01/11/21 12:45 BUN 9 mg/dL (7-17) 01/11/21 12:45 Creatinine 0.3 mg/dL (0.6-1.2) L 01/11/21 12:45 Estimated GFR > 60 ml/min 01/11/21 12:45 BUN/Creatinine Ratio 30 % 01/11/21 12:45 Glucose 116 mg/dL (65-100) H 01/11/21 12:45 POC Glucose 130 mg/dL (70-105) H 01/12/21 07:40 Calcium 8.0 mg/dL (8.4-10.2) L 01/11/21 12:45 Iron 23 ug/dL (37-170) L 01/12/21 07:30 TIBC 78 mcg/dL (250-450) L 01/12/21 07:30 Total Bilirubin 0.50 mg/dL (0.1-1.2) 01/10/21 22:58 Direct Bilirubin < 0.2 mg/dL (0-0.2) 01/10/21 22:58 Indirect Bilirubin 0.3 mg/dL 01/10/21 22:58 AST 33 units/L (5-40) 01/10/21 22:58 ALT 19 units/L (7-56) 01/10/21 22:58 Alkaline Phosphatase 312 units/L (35-129) H 01/10/21 22:58 Total Protein 6.0 g/dL (6.3-8.2) L 01/10/21 22:58 Albumin 2.3 g/dL (3.9-5) L 01/10/21 22:58 Albumin/Globulin Ratio 0.6 % 01/10/21 22:58 Urine Color Yellow (Yellow) 01/11/21 Unknown Urine Turbidity Clear (Clear) 01/11/21 Unknown Urine pH 5.0 (5.0-7.0) 01/11/21 Unknown Ur Specific [place] 1.051 (1.003-1.030) H 01/11/21 Unknown Urine Protein <15 mg/dl mg/dL (Negative) 01/11/21 Unknown Urine Glucose (UA) Neg mg/dL (Negative) 01/11/21 Unknown Urine Ketones Neg mg/dL (Negative) 01/11/21 Unknown Urine Blood Neg (Negative) 01/11/21 Unknown Urine Nitrite Neg (Negative) 01/11/21 Unknown Urine Bilirubin Neg (Negative) 01/11/21 Unknown Urine Urobilinogen < 2.0 mg/dL (<2.0) 01/11/21 Unknown Ur Leukocyte Esterase Sm (Negative) 01/11/21 Unknown Urine WBC (Auto) 7.0 /HPF (0.0-6.0) H 01/11/21 Unknown Urine RBC (Auto) 3.0 /HPF (0.0-6.0) 01/11/21 Unknown U Epithel Cells (Auto) 1.0 /HPF (0-13.0) 01/11/21 Unknown Nasal Screen MRSA (PCR) Negative (Negative) 01/11/21 Unknown Agrawal/IV: Voiding Method External Female Catheter Active Medications - Current Medications Current Medications: Generic Name Dose Route Start Last Admin Trade Name Freq PRN Reason Stop Dose Admin Dextrose 50 ml 01/11/21 03:39 Dextrose 50% In Water (25gm) 50 Ml Syringe IV Q30MIN PRN Hypoglycemia Protocol Hydromorphone HCl 2 mg 01/11/21 13:46 01/11/21 20:22 Hydromorphone 2 Mg/1 Ml Inj IV 2 mg Q3H PRN Administration Pain , Severe (7-10) Sodium Chloride 1,000 mls @ 75 mls/hr 01/11/21 03:45 01/12/21 05:48 Nacl 0.9% 1000 Ml IV 75 mls/hr DIRECT MIRTA Administration Levofloxacin/Dextrose 750 mg in 150 mls @ 100 mls/hr 01/12/21 02:00 01/12/21 01:36 Levaquin 750mg/150ml IV 100 mls/hr Q24H MIRTA Administration Protocol Piperacillin Sod/Tazobactam Sod 4.5 gm in 100 mls @ 200 mls/hr 01/11/21 05:00 01/12/21 05:48 Zosyn/Ns 4.5gm/100ml IV 200 mls/hr Q8H MIRTA Administration Protocol Insulin Human Lispro 0 unit 01/11/21 07:30 01/12/21 08:50 Insulin Lispro 100 Unit/Ml SUB-Q Not Given ACHS MIRTA Protocol Magnesium Hydroxide 30 ml 01/11/21 03:39 Magnesium Hydroxide (Mom) Oral Liqd Udc PO Q4H PRN Constipation Methylprednisolone Sodium Succinate 60 mg 01/11/21 14:00 01/12/21 01:37 Methylprednisolone Sod Succinate 125 Mg/2 Ml Inj IV 01/13/21 13:59 60 mg Q12H MIRTA Administration Morphine Sulfate 30 mg 01/11/21 14:00 01/12/21 10:07 Morphine 30 Mg Er Tab PO 30 mg Q12HR MIRTA Administration Ondansetron HCl 4 mg 01/11/21 03:39 Ondansetron 4 Mg/2 Ml Inj IV Q8H PRN Nausea And Vomiting Sodium Chloride 10 ml 01/11/21 10:00 01/12/21 10:07 Sodium Chloride 0.9% 10 Ml Flush Syringe IV 10 ml BID MIRTA Administration Sodium Chloride 10 ml 01/11/21 03:39 Sodium Chloride 0.9% 10 Ml Flush Syringe IV PRN PRN LINE FLUSH Nutrition/Malnutrition Assess - Dietary Evaluation Nutrition/Malnutrition Findings: Nutrition Notes Start: 01/11/21 12:07 Freq: Status: Active Protocol: Document 01/11/21 12:07 TERESA (Rec: 01/11/21 12:18 [email or web address]) Nutrition Notes Need for Assessment generated from: MD Order,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 Weight Status Appropriate Subjective/Other Information MD consult for diet education and ONS. RN screen for skin risk (Gregory score: 16). Pt with wound between buttocks and perineum. 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 Pt states her sister would take care of her. Pt breifed on how fatty foods can affect the gallbladder. Pt needs reinforcement prior to discharge. Pt did not eat breakfast. Pt fed one ONS and apple sauce at time of visit. Pt states she is in no abd pain now and is not nauseous. 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 No Is Patient Ambulatory and/or Out of Bed No REE-([place]-St[place] Jeor-confined to bed) [phone] Calculation Used for Recommendations [place] Jeor Additional Notes Protein: (1.2-1.5g/kg) 76-95g Fluid: 1 ml/kcal Nutrition Intervention Change Diet Order: Continue Add Supplement/Snack (indicate name/kcal Glucerna TID /protein ) Provides kCal: 660 Provides Protein (gm) 30 Teaching Recipient Patient Learning Readiness Fair Teaching Methods Discussion Response to Teaching Verbalize understanding, Reinforcement needed Barriers to Learning Environmental RD phone number provided No: following pt Patient aware of follow up options Yes Goal #1 Meet at least 80% of protein and energy needs via PO and ONS intakes Anticipated Discharge Needs: Cardiac, Consistent CHO with ONS daily Follow-Up By: 01/15/21 Additional Comments FU for intakes and ONS tolerance
[2021-01-13] MEDS: methylPREDNISolone Sod Succinate 125 MG/2 ML INJ IV SCH (01:13)
[2021-01-13] MEDS: SODIUM CHLORIDE 0.9% 1000 ML 1,000 ML IV SCH (01:17)
[2021-01-13] MEDS: HYDROmorphone 2 MG/1 ML INJ IV PRN (01:27)
[2021-01-13] MEDS: PIPERACIL/TAZOBACTA 4.5/NS 100 4.5 GM/100 ML VIAL IV SCH ×2 (05:14→13:31)
[2021-01-13] MEDS: INSULIN LISPRO 100 UNIT/ML SUB-Q SCH ×2 (09:15→12:06)
[2021-01-13] MEDS: MORPHINE 30 MG ER TAB PO SCH (10:07)
[2021-01-13 12:02] VITALS: BP 141/70
--- NOTE | 2021-01-18 11:04 | Electrocardiograph Report ---
[facility] Test Date: 2021-01-10 Test Time: 22:14:42 Pat Name: SILVA GASTELUM Department: Room: A267 1 Gender: F Obstetrician Gynecologist: YEFRI : 1965 Requested By: LALITA JURADO Order Number: [id number] Reading MD: Brittany Benedict Measurements Intervals [place] Rate: 154 P: 100 AK: 126 QRS: 89 QRSD: 64 T: -89 QT: 262 QTc: 421 Interpretive Statements Sinus tachycardia ST depression consider acute anterior lateral ischemia No previous ECG available for comparison Electronically Signed On 01-18-2021 11:03:58 EDT by Brittany Benedict
== END 2021-01-13 14:00 | disposition hospice, inpatient (51) | DRG 871 ==
LOC: ED 21:55 → IMCU 01-11 03:08
PROVIDERS: ADMIT Internal Medicine Geriatric Medicine; ATTEND Hospitalist
DX: A41.9 Sepsis, unspecified organism (principal); J96.01 Acute respiratory failure with hypoxia; J18.9 Pneumonia, unspecified organism; C78.7 Secondary malignant neoplasm of liver and intrahepatic bile duct; C78.00 Secondary malignant neoplasm of unspecified lung; C53.9 Malignant neoplasm of cervix uteri, unspecified; K80.20 Calculus of gallbladder without cholecystitis without obstruction; C77.9 Secondary and unspecified malignant neoplasm of lymph node, unspecified; C79.31 Secondary malignant neoplasm of brain; E11.9 Type 2 diabetes mellitus without complications; C79.51 Secondary malignant neoplasm of bone; Z20.828 Contact with and (suspected) exposure to other viral communicable diseases; Z79.899 Other long term (current) drug therapy; Z79.84 Long term (current) use of oral hypoglycemic drugs
CPT/HCPCS: 36415; 71045; 71275; 74177; 76700; 80048; 80076; 81001; 82962; 83550; 85007; 85025; 87641; 93005; 96374; 96375; 96376; G0378; J1170; J1956; J2270; J2405; J2543; J2930; J7030; J7040; Q9967; U0003